=== PATIENT | female | born 1965 | race Caucasian/White ===

== ENCOUNTER → 2020-08-15 15:56 | Outpatient (BNVA) | payer OTHER, SELFPAY | PROVIDERS: Family Provider Nurse Practitioner Family; PCP Nurse Practitioner Family; Visit Provider Nurse Practitioner Family | DX: M25.541 Pain in joints of right hand; M25.542 Pain in joints of left hand | CPT/HCPCS: 85025; 86140 ==

== ENCOUNTER → 2021-02-14 09:21 | Outpatient (BNVA) | payer OTHER, SELFPAY | PROVIDERS: Family Provider Nurse Practitioner Family; PCP Nurse Practitioner Family; Visit Provider Nurse Practitioner Family | DX: R05.9 Cough, unspecified (principal) | CPT/HCPCS: 87635 ==

== ENCOUNTER 2021-07-27 05:59 | Outpatient (CLI) | payer OTHER, SELFPAY ==
[2021-07-27 06:56] LABS: Alanine Aminotransferase 20 U/L (0-33); Albumin Level 4.2 g/dL (3.5-5.2); Alkaline Phosphatase 99 IU/L (35-105); Anion Gap 15.3 (5-19); Aspartate Amino Transferase 21 U/L (0-32); Blood Urea Nitrogen 16 mg/dL (6-20); Calcium 9.5 mg/dL (8.5-10.5); Carbon Dioxide 25 mmol/L (22-29); Chloride 104 mmol/L (98-107); Chol HDL Ratio 2.37 mg/dL (0.0-4.40); Cholesterol 232 mg/dL (0-200); Glomerular Filtration Rate 64.5 mL/min (90-130); Glucose 79 mg/dL (65-115); HDL Cholesterol 98 mg/dL (60-100); LDL Cholesterol Calculated 111 mg/dL (50-129); LDL HDL Ratio 1.13 RATIO (0.00-3.22); Osmolality Calculated 290 mOsm/kg (285-295); Potassium 4.3 mmol/L (3.5-5.1); Sodium 140 mmol/L (136-145); Total Bilirubin 0.5 mg/dL (0.15-1.2); Total Protein 7.2 g/dL (6.6-8.7); Triglycerides 114 mg/dL (0-150)
--- NOTE | 2021-07-27 07:32 | XR_ITS ---
WS: [id number] Exam: XR ankle RT min 3V* [id number] Date/Time of Exam: 07/27/2021 7:32 AM Reason For Exam: M25.571 - Pain in right ankle and joints of right foot No priors. No acute fracture or dislocation. Old fractures of the distal tibia and fibula are stabilized with th e internal fixation. The ankle mortise is intact. No sign of hardware failure. An intramedullary kassi is noted in the lower tibia. Mild degenerative change of the ankle mortise. Normal soft tissues. XR/XR ankle RT min 3V* [id number] IMPRESSION: 1. No acute fracture or dislocation. 2. Healed fractures of the distal tibia and fibula with the hardware. 3. Mild posttraumatic degenerative change of the ankle mortise.
== END 2021-07-27 06:00 | disposition home or self-care (01) ==
LOC: LAB 06:01
PROVIDERS: Family Provider Nurse Practitioner Family; PCP Nurse Practitioner Family; Visit Provider Nurse Practitioner Family
DX: R53.83 Other fatigue (principal); M25.571 Pain in right ankle and joints of right foot
CPT/HCPCS: 73610; 80053; 80061

== ENCOUNTER 2022-02-28 09:13 | Outpatient (CLI) | payer OTHER, SELFPAY ==
--- NOTE | 2022-02-28 09:15 | XR_ITS ---
WS: [id number] RIGHT ANKLE: 3 VIEW(S) TECHNIQUE: AP, oblique(s) and lateral. HISTORY: M25.473 - Effusion, unspecified ankle COMPARISON: 07/27/2021 Extensive internal fixation involving the distal tibia and fibula. There is an intramedullary tibial kassi which is incompletely included. No hardware fracture identified. No lucency around the hardware. Osteopenia. Mild narrowing of the tibiotalar joint space. No acute fracture. Enthesopathy at the Achilles tendon attachment. Healed fracture mid tibial diaphysis. No soft tissue abnormality. XR/XR ankle RT min 3V* [id number] IMPRESSION: 1. No acute fracture. 2. Mild degenerative narrowing at the tibiotalar joint space. 3. Extensive internal fixation hardware appears intact. No interval change.
== END 2022-02-28 09:14 | disposition home or self-care (01) ==
PROVIDERS: PCP Nurse Practitioner Family; Visit Provider Nurse Practitioner Family
DX: M25.471 Effusion, right ankle (principal)
CPT/HCPCS: 73610

== ENCOUNTER → 2022-06-19 14:32 | Outpatient (BNVA) | payer OTHER, SELFPAY | PROVIDERS: PCP Nurse Practitioner Family; Visit Provider Podiatrist Foot & Ankle Surgery | DX: B35.3 Tinea pedis (principal); L84 Corns and callosities; L60.3 Nail dystrophy | CPT/HCPCS: 99203 ==

== ENCOUNTER → 2022-11-12 11:32 | Outpatient (BNVA) | payer OTHER, SELFPAY | PROVIDERS: PCP Nurse Practitioner Family; Visit Provider Podiatrist Foot & Ankle Surgery | DX: M19.171 Post-traumatic osteoarthritis, right ankle and foot | CPT/HCPCS: 73610; 99213 ==

== ENCOUNTER → 2023-03-07 13:17 | Outpatient (BNVA) | payer OTHER, SELFPAY | PROVIDERS: PCP Nurse Practitioner Family; Visit Provider Nurse Practitioner Family | DX: J32.9 Chronic sinusitis, unspecified (principal); J44.9 Chronic obstructive pulmonary disease, unspecified | CPT/HCPCS: 87400; 87426 ==

== ENCOUNTER → 2023-07-19 09:12 | Outpatient (BNVA) | payer OTHER, SELFPAY | PROVIDERS: PCP Nurse Practitioner Family; Visit Provider Dermatology | DX: L98.8 Other specified disorders of the skin and subcutaneous tissue (principal); L82.1 Other seborrheic keratosis; D22.5 Melanocytic nevi of trunk; Z80.8 Family history of malignant neoplasm of other organs or systems; B35.3 Tinea pedis | CPT/HCPCS: 99204 ==

== ENCOUNTER → 2023-11-27 09:07 | Outpatient (BNVA) | payer OTHER, SELFPAY | PROVIDERS: PCP Nurse Practitioner Family; Visit Provider Nurse Practitioner Family | DX: B35.3 Tinea pedis (principal); B35.1 Tinea unguium; I87.2 Venous insufficiency (chronic) (peripheral) | CPT/HCPCS: 99214 ==

== ENCOUNTER → 2023-11-29 11:11 | Outpatient (BNVA) | payer OTHER, SELFPAY | PROVIDERS: PCP Nurse Practitioner Family; Visit Provider Nurse Practitioner Family | DX: N39.0 Urinary tract infection, site not specified (principal); R10.9 Unspecified abdominal pain | CPT/HCPCS: 81000; 87086 ==

== ENCOUNTER 2024-06-02 09:58 | Outpatient (CLI) | payer OTHER, SELFPAY ==
--- NOTE | 2024-06-02 10:00 | CT_ITS ---
WS: [id number] LDCT LUNG CANCER SCREENING TECHNIQUE: Noncontrast CT of the chest with coronal and sagittal reformatted images. CLINICAL INFORMATION: Z12.2 - Encounter for screening for malignant neoplasm of... COMPARISON: None. DLP: 68.42 mGy.cm DIvol: Mean CTDIvol: 1.40 (mGy) All CT scans at [facility] use at least one of these dose optimization techniques: automated exposure control; mA and/or kV adjustment per patient size (includes targeted exams where dose is matched to clinical indication); or iterative reconstruction. FINDINGS: Irregular RIGHT upper lobe nodule measuring 7 to 8 mm slightly spiculated or fibrotic appearance. This appears stable compared to 2018. 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 Subsegmental atelectasis RIGHT middle lobe. A few calcified granulomas. Aortic calcification. No mediastinal or hilar lymphadenopathy. No axillary lymphadenopathy. Adrenal glands are normal. Normal GE junction. Mild thoracic curve. Mild thoracic kyphosis. Hypertrophic changes thoracic spine. CT/CT lung screening [id number] IMPRESSION: LUNG-RADS: 2-Benign Appearance or Behavior FOLLOW UP: 12 Month: Continue annual screening with LDCT
== END 2024-06-02 09:59 | disposition home or self-care (01) ==
PROVIDERS: PCP Nurse Practitioner Family; Visit Provider Nurse Practitioner Family
DX: Z12.2 Encounter for screening for malignant neoplasm of respiratory organs (principal); R91.1 Solitary pulmonary nodule; J84.10 Pulmonary fibrosis, unspecified; J98.11 Atelectasis; I70.0 Atherosclerosis of aorta; M43.8X4 Other specified deforming dorsopathies, thoracic region; M40.294 Other kyphosis, thoracic region; M89.38 Hypertrophy of bone, other site
CPT/HCPCS: 71271

== ENCOUNTER → 2024-07-20 09:15 | Outpatient (BNVA) | payer OTHER, SELFPAY | PROVIDERS: PCP Nurse Practitioner Family; Visit Provider Nurse Practitioner Family | DX: B35.3 Tinea pedis (principal); D18.01 Hemangioma of skin and subcutaneous tissue; L82.1 Other seborrheic keratosis; B35.1 Tinea unguium; X32.XXXA Exposure to sunlight, initial encounter; L81.4 Other melanin hyperpigmentation | CPT/HCPCS: 99214 ==

== ENCOUNTER → 2024-07-27 15:49 | Outpatient (BNVA) | payer OTHER, SELFPAY | PROVIDERS: PCP Nurse Practitioner Family; Visit Provider Nurse Practitioner Family | DX: I10 Essential (primary) hypertension (principal); R53.83 Other fatigue; Z12.11 Encounter for screening for malignant neoplasm of colon; E78.5 Hyperlipidemia, unspecified; R25.1 Tremor, unspecified; T63.441A Toxic effect of venom of bees, accidental (unintentional), initial encounter | CPT/HCPCS: 80053; 80061; 84439; 84443; 85025 ==

== ENCOUNTER → 2024-08-06 10:20 | Outpatient (BNVA) | payer OTHER, SELFPAY | PROVIDERS: PCP Nurse Practitioner Family; Visit Provider Student in an Organized Health Care Education/Training Program | DX: Z12.11 Encounter for screening for malignant neoplasm of colon (principal); R03.0 Elevated blood-pressure reading, without diagnosis of hypertension | CPT/HCPCS: 99204 ==

== ENCOUNTER 2024-08-11 11:29 | Day surgery (SDC) | payer OTHER, SELFPAY ==
[2024-08-11 11:53] VITALS: BP 131/83; PULSE 87; RESP 18; TEMP 36.3; O2SAT 94; BMI 29.6
[2024-08-11] MEDS: sodium chloride 0.9% 1,000 ML 15 ML IV (11:58)
--- NOTE | 2024-08-11 12:11 | ANES.PREANE2 ---
Pre-Anesthetic Assessment Height/Weight: Height 1.7 m Weight 85.729 kg Temp Pulse Resp BP Pulse Ox O2 Del Method 97.4 F L 87 18 131/83 94 Room Air 08/11/24 11:53 08/11/24 11:53 08/11/24 11:53 08/11/24 11:53 08/11/24 11:53 08/11/24 11:53 Operation Date: 08/11/24 12:45 Proposed Procedures p Colonoscopy [id number] G0121, Z12.11(Not Applicable) - Martin Snow MD Familial anesthetic complications: None Was Beta Laurel taken within 24 hours: N/A Was Clonidine taken within 24 hours: N/A Last intake: Intake Last Liquid Date 08/11/24 Last Liquid Time 08:00 Last Solid Date 08/10/24 Last Solid Time 11:00 Social Alcohol and Tobacco Exam alert, oriented x 3, clear to auscultation bilaterally and regular rate & rhythm Airway Dentition: other (implants) Pulmonary Chronic Obstructive Pulmonary Disease Metabolic Hyperlipidemia Anesthetic Plan ASA status: 3 Anesthesia: MAC Risk of > 500 ml blood loss (7ml/kg in children): No Medications/Allergies Home Medications ?Medication ?Instructions ?Recorded ?Confirmed ?Last Taken ?Type citalopram 20 mg tablet 20 mg PO DAILY 08/06/24 08/10/24 08/10/24 History montelukast 10 mg tablet 10 mg PO DAILY 08/06/24 08/10/24 08/10/24 History tiotropium bromide 18 mcg capsule 1 cap inhalation DAILY 08/06/24 08/10/24 08/10/24 History with inhalation device (Spiriva with HandiHaler) Allergies Allergy/AdvReac Type Severity Reaction Status Date / Time Penicillins Allergy swelling Verified 08/10/24 10:17 Current Medications Generic Name Dose Route Start Last Admin Trade Name Freq PRN Reason Stop Dose Admin Sodium Chloride 1,000 mls @ 15 mls/hr 08/11/24 11:48 08/11/24 11:58 Sodium Chloride 0.9% IV 08/12/24 11:47 15 mls/hr .Q24H PRN Administration COLONOSCOPY FLUIDS PFSH Anesthesia Medical History COPD (chronic obstructive pulmonary disease) Surgical History History of surgery on lower extremity History of partial hysterectomy Family History Family/Other Cancer Stroke Parkinson disease Denies family history of Diabetes CAD (coronary artery disease) Dementia Hyperlipidemia Chronic kidney disease (CKD) Lung disease Hypertension Social History Smoking and tobacco/nicotine status: current every day tobacco/nicotine user Second hand smoke exposure: Yes Alcohol intake: current Alcohol intake frequency: holidays/special occasions only Substance/Drug Use: never Adopted: No Lives independently: Yes Household members: spouse Housing: House
--- NOTE | 2024-08-11 12:39 | W.PM.OPSUD ---
Surgery/Procedure H&P Update DATE OF PROCEDURE: August 11, 2024 DATE H&P PERFORMED: 08/06/24 H&P UPDATE INFORMATION: I have reviewed H&P completed within last 30 days, I have examined patient prior to procedure and No changes to prior documentation PLANNED PROCEDURE: Operation Date: 08/11/24 12:45 Proposed Procedures p Colonoscopy [id number] G0121, Z12.11(Not Applicable) - Martin Snow MD
--- NOTE | 2024-08-11 12:55 | PC.NURSE ---
Cecum time 1256
[2024-08-11 13:06] VITALS: BP 119/78; PULSE 71; RESP 18; TEMP 36.3; O2SAT 96
[2024-08-11 13:30] VITALS: BP 123/83; PULSE 72; RESP 18; O2SAT 97
--- NOTE | 2024-08-11 13:35 | ANE.PACU2 ---
Inpatient post-anesthesia follow up: Airway intact: Yes Vital signs: Temperature 97.3 F Pulse Rate 72 Respiratory Rate 18 Blood Pressure 123/83 Pulse Oximetry 97 Oxygen Delivery Me thod Room Air Oxygen Flow Rate Fraction of Inspir ed Oxygen Hydration adequate: Yes Nausea and vomiting: No Pain level: 1 Mental status: Baseline
== END 2024-08-11 13:39 | disposition home or self-care (01) ==
PROVIDERS: PCP Nurse Practitioner Family; Visit Provider Student in an Organized Health Care Education/Training Program
PROC: 0DJD8ZZ Inspection of Lower Intestinal Tract, Via Natural or Artificial Opening Endoscopic (ICD-10-PCS; CPT 45378; principal; 2024-08-11 12:45)
DX: Z12.11 Encounter for screening for malignant neoplasm of colon (principal); K62.1 Rectal polyp; K55.20 Angiodysplasia of colon without hemorrhage; J44.9 Chronic obstructive pulmonary disease, unspecified; E78.5 Hyperlipidemia, unspecified; Z79.899 Other long term (current) drug therapy; Z88.0 Allergy status to penicillin
CPT/HCPCS: 45385; 88305; J2704; J7030

== ENCOUNTER → 2024-08-27 09:31 | Outpatient (BNVA) | payer OTHER, SELFPAY | PROVIDERS: PCP Nurse Practitioner Family; Visit Provider Student in an Organized Health Care Education/Training Program | DX: Z09 Encounter for follow-up examination after completed treatment for conditions other than malignant neoplasm (principal) | CPT/HCPCS: 99213 ==